=== PATIENT | male | born 1970 | race Caucasian/White ===

== ENCOUNTER 2017-04-14 11:08 | Emergency (ER) | payer SELFPAY ==
[2017-04-14 11:43] VITALS: BP 107/57
[2017-04-14] MEDS ORDERED: Tetan/Diph/Pertus SYR(Tdap)* 0.5 ML SYR(BOOSTRIX) use SYR IM ONE (12:02)
[2017-04-14] MEDS ORDERED: Lidocaine 1%* 5 ML VIAL INJ ONE (12:09)
--- NOTE | 2017-04-14 13:13 | UC ---
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 Laceration Location: Finger Mechanism Of Injury: Sharp Trauma Onset/Duration: Sudden Onset, Lasting Hours, Still Present Severity: Mild Pain Intensity: 0 Pain Scale Used: 0-10 Numeric Aggravating Factors: Movement Related History: Occupational Injury, Dominant Hand Right <Ciaran Lynn - Last Filed: 04/14/17 13:09> <Sonia Hardy - Last Filed: 04/14/17 13:29> - History Of Current Complaint Chief Complaint: UCLaceration Stated Complaint: R RING FINGER LAC-WC Time Seen by Provider: 04/14/17 11:47 - Allergies/Home Medications Allergies/Adverse Reactions: Allergies Allergy/AdvReac Type Severity Reaction Status Date / Time Bee Pollen Allergy Severe Swelling Verified 04/14/17 11:33 Of Face,Lips,& Throat Home Medications: Home Medications NK [No Home Medications Reported] 04/14/17 [History Confirmed 04/14/17] PMH/Surg Hx/FS Hx/Imm Hx Previously Healthy: Yes Cardiovascular History Of: Reports: Cardiac Disorders - murmur - Surgical History Surgical History: None - Family History Known Family History: Positive: Hypertension - Social History Occupation: Employed Full-time Lives: With Family Alcohol Use: None Substance Use Type: None Smoking Status (MU): Heavy Every Day Tobacco Smoker Type: Cigarettes Amount Used/How Often: 1/2 PPD Cessation Counseling: Patient Advised to Stop - Immunization History Most Recent Influenza Vaccination: 2016 Most Recent Tetanus Shot: UNKNOWN <Ciaran Lynn - Last Filed: 04/14/17 13:09> Review of Systems Constitutional: Negative Skin: Other - 1.5 cm LACERATION RIGHT FOURTH FINGER Eyes: Negative ENT: Negative Respiratory: Negative Cardiovascular: Negative Gastrointestinal: Negative Genitourinary: Negative Motor: Negative Neurovascular: Negative Musculoskeletal: Negative Neurological: Negative Psychological: Negative All Other Systems Reviewed And Are Negative: Yes <Ciaran Lynn - Last Filed: 04/14/17 13:09> Physical Exam Triage Information Reviewed: Yes Appearance: Well-Appearing, No Pain Distress, Well-Nourished Vital Signs: Initial Vital Signs Temp 98.9 F 04/14/17 11:35 Pulse 69 04/14/17 11:35 Resp 18 04/14/17 11:35 BP 107/57 04/14/17 11:35 Pulse Ox 100 04/14/17 11:35 Vital Signs Reviewed: Yes Eye Exam: Normal ENT Exam: Normal ENT: Positive: Normal ENT inspection, Hearing grossly normal, Pharynx normal, TMs normal Dental Exam: Normal Neck exam: Normal Neck: Positive: Supple, Nontender Respiratory Exam: Normal Respiratory: Positive: Chest non-tender, Lungs clear, Normal breath sounds, No respiratory distress, No accessory muscle use Cardiovascular Exam: Normal Cardiovascular: Positive: RRR, No Murmur Abdominal Exam: Normal Musculoskeletal Exam: Normal Musculoskeletal: Positive: Strength Intact, ROM Intact Neurological Exam: Normal Psychological Exam: Normal Skin: Positive: Other - 1.5 CM LACERATION RIGHT 4TH FINGER <Ciaran Lynn - Last Filed: 04/14/17 13:09> Vital Signs: Initial Vital Signs Temp 98.9 F 04/14/17 11:35 Pulse 69 04/14/17 11:35 Resp 18 04/14/17 11:35 BP 107/57 04/14/17 11:35 Pulse Ox 100 04/14/17 11:35 <Sonia Hardy - Last Filed: 04/14/17 13:29> Laceration Repair - Laceration Repair 1 Description: Irregular Laceration Size After Repair: Length (cm) - 1.5, Width (mm) - 3, Depth (mm) - 3 Type Injection: Digital Anesthesia Used: 1.0% Lido Cleansing Completed Via Routine Prep: Yes Irrigation With Pressure Irrigation Device: Yes Closure Material: Sutures - 3X4-0 Suture Of: Skin Suture Type: Prolene <Ciaran Lynn - Last Filed: 04/14/17 13:09> Laceration Course/Dx - Differential Dx - Laceration/Wound Differental Diagnoses: Laceration Provider Diagnoses: LACERATION RIGHT 4TH FINGER WITH REPAIR <Ciaran Lynn - Last Filed: 04/14/17 13:09> Discharge <Ciaran Lynn - Last Filed: 04/14/17 13:09> <Sonia Hardy - Last Filed: 04/14/17 13:29> - Discharge Plan Condition: Stable Disposition: HOME Patient Education Materials: Finger Laceration (ED) Forms: *Work Release Referrals: [facility] [place] [facility] [Outside] No Primary Care Phys,NOPCP [Primary Care Provider] - Additional Instructions: PLEASE HAVE SUTURES REMOVED IN TEN DAYS Attestation Statement User Type: Provider - I was available for consult. This patient was seen by the [facility]. The patient was not presented to, seen by, or examined by me. -Kp <Sonia Hardy - Last Filed: 04/14/17 13:29>
== END 2017-04-14 12:40 | disposition home or self-care (01) ==
LOC: UCCORT 11:08
DX: S61.214A Laceration without foreign body of right ring finger without damage to nail, initial encounter (principal); W45.8XXA Other foreign body or object entering through skin, initial encounter; Y93.G1 Activity, food preparation and clean up; Y92.511 Restaurant or cafe as the place of occurrence of the external cause; Y99.0 Civilian activity done for income or pay; Z23 Encounter for immunization; R01.1 Cardiac murmur, unspecified; Z91.030 Bee allergy status; F17.210 Nicotine dependence, cigarettes, uncomplicated
CPT/HCPCS: 90471; 90715; 99211; G0463

== ENCOUNTER 2017-04-23 14:39 | Emergency (ER) | payer SELFPAY ==
[2017-04-23 15:00] VITALS: BP 100/60
--- NOTE | 2017-04-23 15:22 | UC ---
HPI Wound/Suture Re-check - HPI Summary HPI Summary: 46 male presents for suture removal. He had sutures placed from an injury he sustained at work on 04/14/17. Patients sutures and injury was on right 4th finger. Patient denies any complications or signs of infection. Denies PMHx. - History Of Current Complaint Chief Complaint: UCLaceration Stated Complaint: SUTURE REMOVAL (WC) Time Seen by Provider: 04/23/17 14:59 Hx Obtained From: Patient Onset/Duration: Sudden Onset Surgical Site: right 4th digit Severity: Mild Pain Intensity: 0 Pain Scale Used: 0-10 Numeric Procedure Type: sutures Surgery Date: 04/14/17 Hands: 1 - 3 sutures placed - Allergies/Home Medications Allergies/Adverse Reactions: Allergies Allergy/AdvReac Type Severity Reaction Status Date / Time Bee Pollen Allergy Severe Swelling Verified 04/23/17 15:00 Of Face,Lips,& Throat PMH/Surg Hx/FS Hx/Imm Hx - Additional Past Medical History Additional PMH: denies diabetes, asthma and GERD - Surgical History Surgical History: None - Family History Known Family History: Positive: Hypertension - Social History Alcohol Use: None Substance Use Type: None Smoking Status (MU): Heavy Every Day Tobacco Smoker Type: Cigarettes Amount Used/How Often: 1/2 PPD - Immunization History Most Recent Influenza Vaccination: 2015 Most Recent Tetanus Shot: 03/2017 Vaccination Up to Date: Yes Review of Systems Constitutional: Negative Skin: Negative Respiratory: Negative Cardiovascular: Negative Gastrointestinal: Negative Genitourinary: Negative Motor: Negative Neurovascular: Negative Musculoskeletal: Negative All Other Systems Reviewed And Are Negative: Yes Physical Exam Triage Information Reviewed: Yes Appearance: Well-Appearing, No Pain Distress, Well-Nourished Vital Signs: Initial Vital Signs Temp 98.7 F 04/23/17 14:52 Pulse 69 04/23/17 14:52 Resp 16 04/23/17 14:52 BP 100/60 04/23/17 14:52 Pulse Ox 99 04/23/17 14:52 Vital Signs Reviewed: Yes Eyes: Positive: Conjunctiva Clear ENT: Positive: Normal ENT inspection, Hearing grossly normal Neck: Positive: Supple, Nontender Respiratory: Positive: Chest non-tender, Lungs clear, Normal breath sounds, No respiratory distress, No accessory muscle use Cardiovascular: Positive: RRR, No Murmur, Pulses Normal - 2+, Brisk Capillary Refill - < 2 seconds Musculoskeletal: Positive: Strength Intact, ROM Intact, No Edema Neurological: Positive: Alert Skin: Positive: Other - 3 sutures placed in right middle 4th finger, posterior side, does not appear infected. no erythema, drainage or swelling. healed nicely and well approximated. sutures removed without complication and no further treatment needed at this time. Course/Dx - Course Course Of Treatment: 3 sutures removed without complication from right 4th finger. Educated on worsening signs and symptoms such as infection. Follow up with pcp. - Differential Dx - Laceration/Wound Differential Diagnoses: Abscess, Cellulitis, Dehiscence, Healing Wound, Suture Removal, Other Provider Diagnoses: suture removal Discharge - Discharge Plan Condition: Stable Disposition: HOME Patient Education Materials: Stitches Removal (ED) Referrals: No Primary Care Phys,NOPCP [Primary Care Provider] - [facility] [place] [facility] [Outside] Additional Instructions: Keep an eye out for signs of infection such as redness, discharge and swelling. Keep clean and dry. Follow up with PCP.
== END 2017-04-23 15:25 | disposition home or self-care (01) ==
LOC: UCCORT 14:39
DX: Z48.02 Encounter for removal of sutures (principal)